=== PATIENT | male | born 1995 | race Caucasian/White ===

== ENCOUNTER 2018-06-21 04:09 | Emergency (ER) | payer OTHER ==
[~2018-06-21] VITALS: Ht 182.9 cm; Wt 90.7 kg
[2018-06-21 04:22] VITALS: Ht 182.9 cm; Wt 90.7 kg
[2018-06-21 05:03] VITALS: BP 175/79
== END 2018-06-21 05:08 | disposition other institution (70) ==
LOC: ED 04:09
DX: Z02.89 Encounter for other administrative examinations (principal)